=== PATIENT | female | born 1960 | race Two or more races ===

== ENCOUNTER 2020-04-26 07:00 | Day surgery (SDC) | payer OTHER ==
[~2020-04-26 07:00] MED LIST: MAXALT10 MG PO; NAPRELAN500 M1 PO; TOPAMAX50 MG PO; TYLENOL ARTHRI650 MG PO
== END 2020-04-26 18:45 | disposition home or self-care (01) ==
LOC: CIR.AMB 07:00
PROVIDERS: ATTEND Orthopaedic Surgery Sports Medicine
DX: S83.241A Other tear of medial meniscus, current injury, right knee, initial encounter (principal); M94.261 Chondromalacia, right knee; M67.51 Plica syndrome, right knee; Z20.828 Contact with and (suspected) exposure to other viral communicable diseases